=== PATIENT | female | born 1985 | race Caucasian/White ===

== ENCOUNTER 2019-06-14 04:43 | Emergency (ER) | payer BC, MEDICAID ==
[~2019-06-14] VITALS: Ht 162.6 cm; Wt 67.7 kg
[2019-06-14] MEDS ORDERED: ipratropium/albuterol 3ml nebule NEB ONE (05:05)
[2019-06-14] MEDS ORDERED: azithromycin 250mg tablet PO ONE (05:05)
[2019-06-14] MEDS ORDERED: predniSONE 20 mg tablet PO ONE (05:05)
--- NOTE | 2019-06-14 05:42 | NUR ---
DR FENG AT BEDSIDE AND REPROTS TO PT HE WILL ADD LAB WORK
[2019-06-14 06:14] LABS: BASOPHILS % (AUTO) 0.7 % (0-1); EOSINOPHILS # (AUTO) 0.7 X10'3 (0-0.9); EOSINOPHILS % (AUTO) 11.9 % (0-6); HEMATOCRIT 38.3 % (35.0-45.0); HEMOGLOBIN 12.8 g/dl (12.0-16.0); LYMPHOCYTES # (AUTO) 2.2 X10'3 (1.1-4.8); LYMPHOCYTES % (AUTO) 39.2 % (21-51); MEAN CORPUSCULAR HEMOGLOBIN 28.6 PG (27.0-31.0); MEAN CORPUSCULAR HGB CONC 33.4 g/dL (33.0-36.5); MEAN CORPUSCULAR VOLUME 85.6 FL (78-98); MONOCYTES # (AUTO) 0.6 X10'3 (0-0.9); MONOCYTES % (AUTO) 10.8 % (2-12); NEUTROPHILS # (AUTO) 2.1 X10'3 (1.8-7.7); NEUTROPHILS % (AUTO) 37.4 % (42-75); PLATELET COUNT 141 X10'3 (140-440); RED BLOOD COUNT 4.48 X10'6 (4.20-5.60); WHITE BLOOD COUNT 5.5 X10'3 (4.5-11.0)
[2019-06-14 06:22] LABS: ALANINE AMINOTRANSFERASE 28 U/L (12-78); ALBUMIN 3.5 G/DL (3.4-5.0); ALBUMIN/GLOBULIN RATIO 0.9 (1.1-1.5); ALKALINE PHOSPHATASE 107 IU/L (46-116); ANION GAP 9 (8-16); ASPARTATE AMINO TRANSFERASE 25 U/L (10-37); BLOOD UREA NITROGEN 13 MG/DL (7-18); BUN/CREATININE RATIO 14.8 (6.6-38.0); CALCIUM 8.8 MG/DL (8.5-10.1); CHLORIDE 106 MMOL/L (99-107); CREATININE 0.88 MG/DL (0.40-0.90); GLUCOSE 102 MG/DL (70-104); POTASSIUM 3.6 MMOL/L (3.5-5.1); SODIUM 140 MMOL/L (135-145); TOTAL CARBON DIOXIDE 25.3 MMOL/L (24-32); TOTAL PROTEIN 7.6 G/DL (6.4-8.2); eGFR 73 ML/MIN
[2019-06-14 06:30] LABS: TROPONIN I < 0.04 NG/ML (0.0-0.05)
--- NOTE | 2019-06-14 06:43 | NUR ---
WAITING ADDED D-DIMER. VSS.
[2019-06-14 07:01] LABS: D-DIMER 0.24 MG/L FEU (0-0.50)
[2019-06-14] MEDS ORDERED: AZIT500T2 PO (07:07)
[2019-06-14] MEDS ORDERED: PRED20TA PO (07:07)
[2019-06-14] MEDS ORDERED: ALBU8.5H8 IH (07:09)
[2019-06-14 07:16] VITALS: BP 111/75
== END 2019-06-14 07:18 | disposition home or self-care (01) ==
LOC: ER 04:45
DX: J40 Bronchitis, not specified as acute or chronic (principal); F12.90 Cannabis use, unspecified, uncomplicated; Z79.2 Long term (current) use of antibiotics; Z79.899 Other long term (current) drug therapy
CPT/HCPCS: 71045; 80053; 83880; 84484; 85025; 85379; 93005; 94640; 94760; 99284; J7512

== ENCOUNTER 2019-07-01 09:13 | Emergency (ER) | payer BC, MEDICAID ==
[~2019-07-01] VITALS: Ht 162.6 cm; Wt 67.0 kg
[~2019-07-01 09:13] MED LIST: ALBU8.5H8 IH; AZIT500T2 PO; PRED20TA PO
[2019-07-01 09:19] VITALS: BP 117/61
[2019-07-01 10:12] LABS: EOSINOPHILS # (AUTO) 0.2 X10'3 (0-0.9); EOSINOPHILS % (AUTO) 3.6 % (0-6); HEMATOCRIT 36.7 % (35.0-45.0); HEMOGLOBIN 12.2 g/dl (12.0-16.0); LYMPHOCYTES # (AUTO) 1.5 X10'3 (1.1-4.8); LYMPHOCYTES % (AUTO) 33.4 % (21-51); MEAN CORPUSCULAR HEMOGLOBIN 28.5 PG (27.0-31.0); MEAN CORPUSCULAR HGB CONC 33.2 g/dL (33.0-36.5); MEAN CORPUSCULAR VOLUME 85.9 FL (78-98); MEAN PLATELET VOLUME 8.1 FL (7.4-10.4); MONOCYTES # (AUTO) 0.4 X10'3 (0-0.9); MONOCYTES % (AUTO) 8.5 % (2-12); NEUTROPHILS # (AUTO) 2.4 X10'3 (1.8-7.7); NEUTROPHILS % (AUTO) 53.5 % (42-75); PLATELET COUNT 168 X10'3 (140-440); RED BLOOD COUNT 4.27 X10'6 (4.20-5.60); RED CELL DISTRIBUTION WIDTH 18.2 % (11.5-14.5); WHITE BLOOD COUNT 4.5 X10'3 (4.5-11.0)
[2019-07-01 10:17] LABS: CLARITY,URINE CLEAR (Clear); COLOR,URINE YELLOW (Yellow); GLUCOSE, URINE NEGATIVE (Neg); KETONES,URINE NEGATIVE (Neg); LEUKOCYTE ESTERASE ,URINE NEGATIVE (Neg); NITRITES, URINE NEGATIVE (Neg); OCCULT BLOOD,URINE SMALL (Neg); PROTEIN,URINE NEGATIVE (Neg); UROBILINOGEN,URINE 0.2 E.U/dL (0.2-1.0)
[2019-07-01 10:23] LABS: UA COLLECTION TYPE CLN CATCH MIDSTREAM
[2019-07-01 10:24] LABS: BACTERIA,URINE NONE SEEN /HPF (Neg); MUCUS STRANDS MODERATE /LPF (Neg); RBC,URINE 0-2 /HPF (0-2); SQUAMOUS EPITHELIAL CELL,UR FEW /LPF (FEW); WBC,URINE 0-4 /HPF (0-4)
[2019-07-01 10:26] LABS: ALBUMIN 3.4 G/DL (3.4-5.0); ANION GAP 5 (8-16); BILIRUBIN,TOTAL 1.4 MG/DL (0.1-1.0); BLOOD UREA NITROGEN 13 MG/DL (7-18); BUN/CREATININE RATIO 16.7 (6.6-38.0); CALCIUM 8.8 MG/DL (8.5-10.1); CHLORIDE 107 MMOL/L (99-107); CREATININE 0.78 MG/DL (0.40-0.90); GLUCOSE 84 MG/DL (70-104); POTASSIUM 3.6 MMOL/L (3.5-5.1); SODIUM 141 MMOL/L (135-145); TOTAL CARBON DIOXIDE 28.9 MMOL/L (24-32); TOTAL PROTEIN 6.8 G/DL (6.4-8.2); eGFR 84 ML/MIN
[2019-07-01 10:27] LABS: ALANINE AMINOTRANSFERASE 25 U/L (12-78); ALKALINE PHOSPHATASE 105 IU/L (46-116); ASPARTATE AMINO TRANSFERASE 20 U/L (10-37)
[2019-07-01 10:32] LABS: URINE HCG NEGATIVE (NEG)
== END 2019-07-01 10:48 | disposition home or self-care (01) ==
LOC: ER 09:15
DX: M54.41 Lumbago with sciatica, right side (principal); F12.90 Cannabis use, unspecified, uncomplicated; Z79.2 Long term (current) use of antibiotics; Z79.899 Other long term (current) drug therapy
CPT/HCPCS: 36415; 80053; 81001; 81025; 85025; 99283

== ENCOUNTER 2020-09-16 15:07 | Emergency (ER) | payer BC, MEDICAID ==
[~2020-09-16] VITALS: Ht 162.6 cm; Wt 69.5 kg
[~2020-09-16 15:07] MED LIST changes: -AZIT500T2 PO; -PRED20TA PO
[2020-09-16 15:36] VITALS: BP 101/67
[2020-09-16] MEDS ORDERED: cephalexin 500mg capsule PO ONE (18:55)
[2020-09-16] MEDS ORDERED: sulfamethoxazole/trimethoprim DS (800/160mg) tablet PO ONE (18:55)
[2020-09-16] MEDS ORDERED: SULF1TAB49 PO (18:55)
[2020-09-16] MEDS ORDERED: CEPH500C5 PO (18:55)
== END 2020-09-16 19:15 | disposition home or self-care (01) ==
LOC: ER 15:07
DX: S01.112A Laceration without foreign body of left eyelid and periocular area, initial encounter (principal); L03.213 Periorbital cellulitis; F12.90 Cannabis use, unspecified, uncomplicated; Z79.899 Other long term (current) drug therapy; X58.XXXA Exposure to other specified factors, initial encounter; Y93.89 Activity, other specified; Y92.89 Other specified places as the place of occurrence of the external cause; Y99.8 Other external cause status
CPT/HCPCS: 99283